=== PATIENT | female | born 2000 | race Caucasian/White ===

== ENCOUNTER 2020-09-04 13:12 | Emergency (ER) | payer SELFPAY ==
[~2020-09-04] VITALS: Ht 170.2 cm; Wt 60.8 kg
--- NOTE | 2020-09-04 13:32 | NUR ---
pt came to er with c/o dizziness with nausea and vomiting x 6 months. no fever. c/o headache in frontal area. no dysuria. awaiting for md coyle
[2020-09-04] MEDS ORDERED: IV NS 0.9% 1,000 ML BAG IV ONE (14:00)
[2020-09-04] MEDS ORDERED: METOCLOPRAMIDE HCL 10 MG/2 ML VIAL IV ONE (14:00)
[2020-09-04] MEDS ORDERED: KETOROLAC TROMETHAMINE INJ 30 MG/ML VIAL IV ONE (14:00)
[2020-09-04] MEDS ORDERED: diphenhydrAMINE HCL 50 MG/ML VIAL IV ONE (14:00)
[2020-09-04 14:09] LABS: BASOPHILS % (AUTO) 0.3 % (0.0-2.0); EOSINOPHILS % (AUTO) 1.1 % (0.0-6.0); HEMATOCRIT 40 % (33-45); HEMOGLOBIN 13.3 g/dL (11.5-14.8); LYMPHOCYTES # (AUTO) 1.5 /CMM (0.8-4.8); LYMPHOCYTES % (AUTO) 28.1 % (20.0-44.0); MEAN CORPUSCULAR HGB CONC 34 g/dl (31.0-36.0); MEAN CORPUSCULAR VOLUME 93 fL (82-100); MONOCYTES # (AUTO) 0.3 /CMM (0.1-1.30); MONOCYTES % (AUTO) 6.1 % (2.0-12.0); NEUTROPHILS # (AUTO) 3.4 /CMM (1.8-8.9); NEUTROPHILS % (AUTO) 64.4 % (43.0-81.0); PLATELET COUNT (AUTO) 185 /CMM (150-450); WHITE BLOOD COUNT (AUTO) 5.3 K/uL (4.3-11.0)
[2020-09-04 14:17] LABS: CALCIUM, SERUM 9.2 mg/dL (8.5-10.1); CREATININE 0.6 mg/dL (0.6-1.3); POTASSIUM 3.6 mmol/L (3.5-5.1)
[2020-09-04] MEDS ORDERED: METOCLOPRAMIDE HCL 10 MG/10 ML UDC ONE (14:20)
[2020-09-04] MEDS ORDERED: diphenhydrAMINE HCL 50 MG/ML VIAL ONE (14:21)
[2020-09-04] MEDS ORDERED: KETOROLAC TROMETHAMINE INJ 30 MG/ML VIAL ONE (14:21)
[2020-09-04] MEDS ORDERED: METOCLOPRAMIDE HCL 10 MG/2 ML VIAL ONE (14:22)
--- NOTE | 2020-09-04 15:03 | NUR ---
pt out for ct
[2020-09-04 16:13] VITALS: BP 121/78
== END 2020-09-04 16:14 | disposition home or self-care (01) ==
LOC: ER 13:16
DX: R42 Dizziness and giddiness (principal); R11.0 Nausea; R51.9 Headache, unspecified
CPT/HCPCS: 36415; 70450; 80048; 84703; 85025; 93005; 96361; 96374; 96375; 99285; J1200; J1885; J2765; J7030; J8597